=== PATIENT | female | born 1960 | race Caucasian/White ===

== ENCOUNTER 2023-11-10 18:32 | Emergency (ER) | payer MEDICARE, MEDICAID ==
[~2023-11-10] VITALS: Ht 165.1 cm; Wt 93.7 kg
[2023-11-10] MEDS ORDERED: AZIT500T9 PO (20:02)
[2023-11-10] MEDS ORDERED: PRED20TA PO (20:02)
[2023-11-10] MEDS: ipratropium/albuterol 3ml nebule NEB ONE (20:07)
[2023-11-10] MEDS: predniSONE 20 mg tablet PO ONE (20:08)
[2023-11-10] MEDS: azithromycin 250mg tablet PO ONE (20:08)
[2023-11-10 20:12] VITALS: PULSE 88; RESP 20
[2023-11-10 20:15] VITALS: PULSE 85; RESP 18; O2SAT 100
[2023-11-10] MEDS ORDERED: ALBU8HFA PO (20:35)
[2023-11-10 21:29] VITALS: BP 149/90; PULSE 66; RESP 20; TEMP 98.8; O2SAT 95
== END 2023-11-10 21:30 | disposition home or self-care (01) ==
LOC: ER 18:32
DX: R05.9 Cough, unspecified (principal); R06.2 Wheezing; Z88.1 Allergy status to other antibiotic agents; Z88.0 Allergy status to penicillin; Z79.2 Long term (current) use of antibiotics; Z79.52 Long term (current) use of systemic steroids
CPT/HCPCS: 71046; 94640; 99283; J7512; Z7610

== ENCOUNTER 2023-11-21 13:34 | Emergency (ER) | payer MEDICARE, MEDICAID ==
[~2023-11-21] VITALS: Ht 165.1 cm; Wt 92.9 kg
[~2023-11-21 13:34] MED LIST: ALBU8HFA PO; AZIT500T9 PO
[2023-11-21 13:37] VITALS: TEMP 98.4
[2023-11-21] MEDS ORDERED: PRED20TA PO (13:57)
[2023-11-21] MEDS ORDERED: HYDR-3686 PO (13:57)
[2023-11-21] MEDS: dexamethasone sod phosphate 10mg/ml inj IM STA (14:05)
[2023-11-21 14:10] VITALS: BP 168/98; PULSE 77; RESP 16; O2SAT 95
== END 2023-11-21 14:12 | disposition home or self-care (01) ==
LOC: ER 13:35
DX: R21 Rash and other nonspecific skin eruption (principal); Z88.1 Allergy status to other antibiotic agents; Z79.2 Long term (current) use of antibiotics
CPT/HCPCS: 96372; 99283; J1100